=== PATIENT | male | born 1995 | race Caucasian/White ===

== ENCOUNTER 2017-10-12 15:43 | Emergency (ER) | payer BC, MEDICAID ==
[2017-10-12] MEDS ORDERED: Ketorolac 60 MG/2 ML SDV IM ONE (16:42)
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
--- NOTE | 2017-10-13 08:29 | CR ---
Cervical Spine Min 4V CLINICAL HISTORY: Neck pain FINDINGS: The vertebral body heights are intact. The disc spaces are maintained. There is reversal of the normal cervical lordosis.. There is no significant spondylosis. Pedicles appear intact. There is no significant encroachment on the neural foramina Impression: Reversal of normal cervical lordosis suggests spasm
--- NOTE | 2017-10-13 08:32 | CR ---
Thoracic Spine 3V CLINICAL HISTORY: Interscapular pain FINDINGS: The vertebral bodies are normal in height. There is no osteophytosis. The pedicles are unre markable. There is a minimal dextroscoliosis. Impression: Minimal dextroscoliosis
== END 2017-10-12 18:46 | disposition home or self-care (01) ==
LOC: JP.ED 15:43
DX: S16.1XXA Strain of muscle, fascia and tendon at neck level, initial encounter (principal); V89.2XXA Person injured in unspecified motor-vehicle accident, traffic, initial encounter
CPT/HCPCS: 72050; 72072; 72125; 96372; 99284; J1885

== ENCOUNTER 2018-06-21 15:26 | Emergency (ER) | payer MEDICAID ==
[2018-06-21] MEDS ORDERED: HYDROmorphone 1 MG/ML Syringe IM ONE (15:52)
--- NOTE | 2018-06-21 15:56 | EDM.PDOC ---
ED HPI GENERAL MEDICAL PROBLEM - General Chief Complaint: General Stated Complaint: TOOTH EXTRACTION PAIN Time Seen by Provider: 06/21/18 15:45 Source of Information: Reports: Patient, Family History Limitations: Reports: No Limitations - History of Present Illness INITIAL COMMENTS - FREE TEXT/NARRATIVE: 23-year-old male had 3 out of 4 wisdom teeth extracted 5 hours ago. He is not handling the pain. Extremely anxious, can't sit still and he is driving his mother "crazy". Location: Reports: Face - Related Data Allergies Allergy/AdvReac Type Severity Reaction Status Date / Time No Known Allergies Allergy Verified 06/21/18 15:43 Home Meds: Home Meds NK [No Known Home Meds] 10/12/17 [History] Past Medical History HEENT History: Reports: Impaired Vision Gastrointestinal History: Reports: GERD Musculoskeletal History: Reports: Fracture - Past Surgical History Head Surgeries/Procedures: Reports: None HEENT Surgical History: Reports: Other (See Below) GI Surgical History: Reports: None Musculoskeletal Surgical History: Reports: Other (See Below) Other Musculoskeletal Surgeries/Procedures:: L CLAVICLE FX Social & Family History - Tobacco Use Smoking Status *Q: Current Every Day Smoker Years of Tobacco use: 5 Packs/Tins Daily: 0.5 Used Tobacco, but Quit: No - Caffeine Use Caffeine Use: Reports: Soda ED ROS GENERAL - Review of Systems Review Of Systems: See Below Constitutional: Denies: Fever HEENT: Reports: Dental Pain Respiratory: Denies: Shortness of Breath GI/Abdominal: Reports: Nausea. Denies: Vomiting Neurological: Denies: Headache ED EXAM, GENERAL - Physical Exam Exam: See Below Exam Limited By: No Limitations General Appearance: Alert, Moderate Distress (Looks fairly uncomfortable) Throat/Mouth: Other (Gauze is placed on the extraction sites, there does not appear to be any bleeding or significant swelling at this point) Respiratory/Chest: No Respiratory Distress, Lungs Clear Course - Vital Signs Last Recorded V/S: Last Vital Signs Temp 97.5 F 06/21/18 15:44 Pulse 91 06/21/18 15:44 Resp 18 06/21/18 15:44 BP 142/73 H 06/21/18 15:44 Pulse Ox 99 06/21/18 15:44 - Orders/Labs/Meds Meds: Medications Discontinued Medications Generic Name Dose Route Start Last Admin Trade Name Freq PRN Reason Stop Dose Admin Hydromorphone HCl 1 mg 06/21/18 15:52 06/21/18 16:04 Dilaudid IM 06/21/18 15:53 1 mg ONETIME ONE Administration - Re-Assessments/Exams Free Text/Narrative Re-Assessment/Exam: 06/21/18 15:55 Patient will be given 1 mg of IM Dilaudid, and hopefully later today can start taking his antibiotic and pain medications. Recheck in 1-2 days if not improving satisfactorily. Continue with icing externally. Departure - Departure Time of Disposition: 16:08 Disposition: Home, Self-Care 01 Clinical Impression: Other acute postprocedural pain - Discharge Information Instructions: Pain Relief Preoperatively and Postoperatively Referrals: PCP,None [Primary Care Provider] - Forms: ED Department Discharge Care Plan Goals: Continue your current medications as prescribed. Ice over the surgical areas will help. Recheck in 2-3 days if not improving satisfactorily.
== END 2018-06-21 16:08 | disposition home or self-care (01) ==
LOC: JP.ED 15:26
DX: G89.18 Other acute postprocedural pain (principal); K08.89 Other specified disorders of teeth and supporting structures; Z98.818 Other dental procedure status
CPT/HCPCS: 99283; J1170; 96372

== ENCOUNTER 2019-11-10 18:04 | Emergency (ER) | payer MEDICAID | END 2019-11-10 19:34 | disposition left against medical advice (07) | LOC: JP.ED 18:04 | DX: Z53.21 Procedure and treatment not carried out due to patient leaving prior to being seen by health care provider (principal) ==

== ENCOUNTER 2019-11-10 23:30 | Emergency (ER) | payer MEDICAID ==
[2019-11-10] MEDS ORDERED: Bacitracin Oint 1 GM U/D Packet TOP ONE (23:46)
[2019-11-11] MEDS ORDERED: Diphtheria,Pertussis(Acell),Tetanus Vaccine 0.5 ML SDV IM ONE (01:28)
--- NOTE | 2019-11-11 01:32 | EDM.PDOC ---
ED HPI GENERAL MEDICAL PROBLEM - General Chief Complaint: Laceration Stated Complaint: CUT ON LEFT HAND Time Seen by Provider: 11/10/19 23:45 Source of Information: Reports: Patient History Limitations: Reports: No Limitations - History of Present Illness INITIAL COMMENTS - FREE TEXT/NARRATIVE: chief complaint: cut to left hand This is a 24 year old male presents to the ER for evaluation of laceration to left hand. He reports earlier this evening was cutting with a knife, slipped and cut the left hand. no other concerns. last Tetanus is unknown. Onset: Today Duration: Hour(s): Location: Reports: Upper Extremity, Left Quality: Reports: Ache Severity: Mild Improves with: Reports: Other (bandage) Worsens with: Reports: None Context: Reports: Other (cut with knife) Treatments [employer]: Reports: Dressing(s) - Related Data Allergies Allergy/AdvReac Type Severity Reaction Status Date / Time No Known Allergies Allergy Verified 11/11/19 00:24 Home Meds: Home Meds NK [No Known Home Meds] 10/12/17 [History] Past Medical History HEENT History: Reports: Impaired Vision Gastrointestinal History: Reports: GERD Musculoskeletal History: Reports: Fracture - Past Surgical History Head Surgeries/Procedures: Reports: None HEENT Surgical History: Reports: Other (See Below) GI Surgical History: Reports: None Musculoskeletal Surgical History: Reports: Other (See Below) Other Musculoskeletal Surgeries/Procedures:: L CLAVICLE FX Social & Family History - Tobacco Use Smoking Status *Q: Current Every Day Smoker Years of Tobacco use: 7 Packs/Tins Daily: 0.5 - Caffeine Use Caffeine Use: Reports: Coffee, Energy Drinks - Alcohol Use Days Per Week of Alcohol Use: 1 Number of Drinks Per Day: 3 Total Drinks Per Week: 3 - Recreational Drug Use Recreational Drug Use: No - Living Situation & Occupation Living situation: Reports: with Significant Other (reports Mom last year in September. Doing good.) ED ROS GENERAL - Review of Systems Review Of Systems: See Below Constitutional: Reports: No Symptoms Skin: Reports: Wound Hematologic/Lymphatic: Reports: No Symptoms Immunologic: Reports: No Symptoms ED EXAM, SKIN/RASH Exam: See Below Exam Limited By: No Limitations General Appearance: Alert, WD/WN, No Apparent Distress Extremities: Normal Capillary Refill, Other (laceration noted to left hand. no active bleeding is noted.) Neurological: No Motor/Sensory Deficits Psychiatric: Normal Affect, Normal Mood Skin: Warm, Dry, Wound/Incision Location, Skin: Upper Extremity, Left (hand) Characteristics: Linear Associated features: Tenderness Lymphatic: No Adenopathy ED SKIN PROCEDURES - Laceration/Wound Repair Left Anterior Hand Appearance: Subcutaneous, Linear, Clean Distal NVT: Neuro & Vascular Intact, No Tendon Injury Anesthetic Type: Local Local Anesthesia - Lidocaine (Xylocaine): 1% Plain Local Anesthetic Volume: 2cc Skin Prep: Providone-Iodine (Betadine), Saline Exploration/Debridement/Repair: Wound Explored Closed with: Sutures Lac/Wound length In cm: 1 Suture Size: 4-0 # of Sutures: 4 Suture Type: Prolene Tetanus Status Addressed: Yes (given in ER today) Complications: No Progress/Comments: bacitracin and bandage applied Course - Vital Signs Last Recorded V/S: Last Vital Signs Temp 36.5 C 11/11/19 01:00 Pulse 65 11/11/19 01:00 Resp 16 11/11/19 01:00 BP 103/61 11/11/19 01:00 Pulse Ox 97 11/11/19 01:00 - Orders/Labs/Meds Orders: Active Orders 24 hr Category Date Time Status Vaccines to be Administered [RC] PER UNIT ROUTINE Care 11/11/19 01:28 Active Meds: Medications Discontinued Medications Generic Name Dose Route Start Last Admin Trade Name Veronique PRN Reason Stop Dose Admin Bacitracin 1 dose 11/10/19 23:46 11/11/19 01:01 Bacitracin Oint 1 Gm TOP 11/10/19 23:47 1 dose ONETIME ONE Administration Diphtheria/Tetanus/Acell Pertussis 0.5 ml 11/11/19 01:28 11/11/19 01:41 Adacel IM 11/11/19 01:29 0.5 ml .ONCE ONE Administration Lidocaine HCl 5 ml 11/10/19 23:46 11/11/19 01:01 Xylocaine-Mpf 1% INJECT 11/10/19 23:47 5 ml ONETIME ONE Administration Departure - Departure Time of Disposition: 01:28 Disposition: Home, Self-Care 01 Condition: Good Clinical Impression: Broken skin - Discharge Information *PRESCRIPTION DRUG MONITORING PROGRAM REVIEWED*: Not Applicable *COPY OF PRESCRIPTION DRUG MONITORING REPORT IN PATIENT TIFFANIE: Not Applicable Instructions: Laceration Care, Adult, [id number] Referrals: PCP,None [Primary Care Provider] - Forms: ED Department Discharge Care Plan Goals: Laceration repair of left hand -Tdap given in ER -[address] in left hand -suture removal in 7 to 10 days -apply antibiotic ointment to wound once a day for 3 days -keep wound clean and dry -monitor for signs of infection Return to ER if develops any redness, discharge, swelling, pain, fever, chills, or any concerns. Sepsis Event Note (ED) - Evaluation Sepsis Screening Result: No Definite Risk - Focused Exam Vital Signs: Vital Signs Temp Pulse Resp BP Pulse Ox 11/11/19 01:00 36.5 C 65 16 103/61 97 11/11/19 00:37 36.5 C 65 16 103/61 97 - Problem List & Annotations (1) Broken skin SNOMED Code(s): 676636058 Code(s): R23.8 - OTHER SKIN CHANGES Status: Acute Priority: High - Problem List Review Problem List Initiated/Reviewed/Updated: Yes - My Orders Last 24 Hours: My Active Orders 11/11/19 01:28 Vaccines to be Administered [RC] PER UNIT ROUTINE - Assessment/Plan Last 24 Hours: My Active Orders 11/11/19 01:28 Vaccines to be Administered [RC] PER UNIT ROUTINE Plan: Laceration repair of left hand -Tdap given in ER -[address] in left hand -suture removal in 7 to 10 days -apply antibiotic ointment to wound once a day for 3 days -keep wound clean and dry -monitor for signs of infection Return to ER if develops any redness, discharge, swelling, pain, fever, chills, or any concerns.
== END 2019-11-11 01:45 | disposition home or self-care (01) ==
LOC: JP.ED 23:30
DX: S61.412A Laceration without foreign body of left hand, initial encounter (principal); F17.210 Nicotine dependence, cigarettes, uncomplicated; W26.0XXA Contact with knife, initial encounter; Z23 Encounter for immunization
CPT/HCPCS: 12001; 90471; 90715; 99282; J2001

== ENCOUNTER 2024-10-14 11:24 | Emergency (ER) | payer MEDICAID ==
[2024-10-14 14:15] LABS: BASOPHILS ABSOLUTE AUTO 0.06 K/uL (0.00-0.10); BASOPHILS PERCENT AUTO 0.4 % (0.1-1.3); EOSINOPHILS ABSOLUTE AUTO 0.09 K/uL (0.00-0.40); EOSINOPHILS PERCENT AUTO 0.6 % (0.0-5.4); HEMATOCRIT 45.1 % (38.4-49.7); HEMOGLOBIN 15.6 g/dL (12.9-16.9); IMMATURE GRAN ABSOLUTE AUTO 0.06 K/uL (0.00-0.23); IMMATURE GRAN PERCENT AUTO 0.4 % (0.0-0.7); LYMPHOCYTES ABSOLUTE AUTO 2.27 K/uL (0.8-3.3); LYMPHOCYTES PERCENT AUTO 16.2 % (11.4-47.7); MEAN CORPUSCULAR HEMOGLOBIN 32.6 pg (31.6-35.5); MEAN CORPUSCULAR HGB CONC 34.6 g/dL (31.6-35.5); MEAN CORPUSCULAR VOLUME 94.4 fL (81.4-99.0); MONOCYTES ABSOLUTE AUTO 0.72 K/uL (0.20-0.90); MONOCYTES PERCENT AUTO 5.1 % (3.3-12.6); NEUTROPHILS ABSOLUTE AUTO 10.81 K/uL (1.0-7.6); NEUTROPHILS PERCENT AUTO 77.3 % (40.0-78.1); PLATELET COUNT,PLT 263 K/uL (130-375); RED BLOOD CELL COUNT 4.78 M/uL (4.14-5.76)
[2024-10-14 14:47] LABS: CALCIUM 9.2 mg/dL (8.5-10.1); CREATININE 0.8 mg/dL (0.8-1.3); EST CRCL DRUG DOSING (CG) 120.65 mL/min; POTASSIUM,K 3.7 mmol/L (3.6-5.2); TROPONIN I HIGH SENSITIVITY 5.6 pg/mL (<=60.3)
[2024-10-14 14:48] LABS: ANION GAP 12.7 mmol/L (5.0-14.0)
[2024-10-14] MEDS: Ketorolac 30 MG/ML SDV IM ONE (14:50)
== END 2024-10-14 16:17 | disposition home or self-care (01) ==
LOC: JP.ED 11:24
DX: R07.9 Chest pain, unspecified (principal)
CPT/HCPCS: 36415; 71046; 80048; 84484; 85025; 93005; 93010; 96372; 99283; 99285; J1885

== ENCOUNTER 2025-01-20 01:49 | Emergency (ER) | payer MEDICAID | END 2025-01-20 02:45 | disposition left against medical advice (07) | LOC: JP.ED 01:49 | DX: M25.571 Pain in right ankle and joints of right foot (principal); F17.200 Nicotine dependence, unspecified, uncomplicated; Z86.16 Personal history of COVID-19; W22.8XXA Striking against or struck by other objects, initial encounter | CPT/HCPCS: 99283 ==

== ENCOUNTER → 2025-04-21 | Day surgery (SDC) | payer MEDICAID ==
[~2025-04-21] MED LIST: Midazolam 1 MG/ML 2 ML SDV ONE; Propofol 200 MG/20 ML SDV ONE; fentaNYL 100 MCG/2 ML SDV ONE
[2025-04-21] MEDS: Lactated Ringers 1,000 ML IV SCH (07:39)
[2025-04-21] MEDS: Nozin Nasal Sanitizer NASBOTH ONE (07:41)
[2025-04-21 07:42] LABS: PLATELET COUNT,PLT 242.0 K/uL (130-375); RED BLOOD CELL COUNT 4.67 M/uL (4.14-5.76); WHITE BLOOD CELL COUNT,WBC 8.8 K/uL (3.2-11.0)
[2025-04-21 07:57] LABS: BLOOD UREA NITROGEN,BUN 18.0 mg/dL (7-18); CARBON DIOXIDE,CO2 25.0 mmol/L (21-32); CHLORIDE,CL 106.0 mmol/L (100-108); CREATININE 0.8 mg/dL (0.8-1.3); EST CRCL DRUG DOSING (CG) 119.58 mL/min; ESTIMATED GFR 124.0 mL/min (>60); GLUCOSE RANDOM 98.0 mg/dL (74-106); POTASSIUM,K 4.1 mmol/L (3.6-5.2); SODIUM,NA 141.0 mmol/L (140-148)
[2025-04-21] MEDS: Acetaminophen/HYDROcodone 325-5 MG Tab PO ONE (10:11)
== END ==
LOC: JP.SDS 07:24
PROVIDERS: ATTEND Specialist
DX: G56.01 Carpal tunnel syndrome, right upper limb (principal)
CPT/HCPCS: 36415; 80048; 85027; A9270-GY; J0665; J0690; J2250; J2704; J3010; J7120

== ENCOUNTER 2025-04-24 12:37 | Emergency (ER) | payer MEDICAID | END 2025-04-24 15:08 | disposition home or self-care (01) | LOC: JP.ED 12:37 | DX: J11.1 Influenza due to unidentified influenza virus with other respiratory manifestations (principal); F17.200 Nicotine dependence, unspecified, uncomplicated; Z86.16 Personal history of COVID-19 | CPT/HCPCS: 71046; 71046-26; 87428-QW; 99283 ==